=== PATIENT | female | born 1950 | race African-American/Black ===

== ENCOUNTER 2017-01-05 14:49 | Inpatient (IN) | payer MEDICARE, MEDICAID ==
[~2017-01-05] VITALS: Ht 152.4 cm; Wt 48.9 kg
[~2017-01-05 14:49] MED LIST: ALLO300 PO; BENZ0.5T6 PO; CLON.2 PO; ETOMIDATE 2 MG/ML 10 ML VIAL IVP ONE; FLUO-191 PO; RISP1 PO; SUCCINYLCHOLINE CHLORIDE 20 MG/ML 10 ML VIAL IVP ONE; TRIA1CAP13 PO
[2017-01-05] MEDS ORDERED: IPRATROPIUM BROMIDE 0.5 MG/2.5 ML NEB SOLUTION NEB ONE (15:00)
[2017-01-05] MEDS ORDERED: ALBUTEROL SULFATE 2.5 MG/0.5 ML NEB SOLUTION NEB ONE (15:00)
[2017-01-05 15:51] LABS: ANION GAP 16 mmol/L (8-16); CALCIUM, TOTAL 9.7 mg/dL (8.8-10.5); CARBON DIOXIDE 24 mmol/L (22-29); CHLORIDE 90 mmol/L (98-107); CREATININE 0.74 mg/dL (0.60-1.30); GLOMERULAR FILTR. RATE CALC > 60 mL/min (>60); POTASSIUM 3.3 mmol/L (3.5-5.1); SODIUM SERUM 130 mmol/L (136-145); UREA NITROGEN, BLOOD 10 mg/dL (7-18)
[2017-01-05 16:13] LABS: ALANINE AMINOTRANSFERASE 57 U/L (12-78); ALBUMIN 2.1 g/dL (3.4-5.0); ASPARTATE AMINOTRANSFERASE 72 U/L (15-37); BILIRUBIN,TOTAL 1.1 mg/dL (0.1-1.0); TOTAL PROTEIN, SERUM 8.3 g/dL (6.4-8.2)
[2017-01-05] MEDS ORDERED: CefTRIAXone 1 GM/DEXTROSE 50 ML IV ONE (16:15)
[2017-01-05] MEDS ORDERED: SODIUM CHLORIDE 0.9% 1,000 ML IV ONE (16:15)
[2017-01-05] MEDS ORDERED: AZITHROMYCIN 500 MG/NS 250 ML IV ONE (16:15)
[2017-01-05 16:26] LABS: B-TYPE NATRIURETIC PEPTIDE 128 pg/mL (0-100)
[2017-01-05 17:23] LABS: HEMATOCRIT 34.3 % (36-46); HEMOGLOBIN 11.5 g/dL (12.0-16.0); MEAN CORPUSCULAR HEMOGLOBIN 32.5 pg (26.0-34.0); MEAN CORPUSCULAR HGB CONC 33.5 G/dL (31.0-37.0); MEAN CORPUSCULAR VOLUME 97 fL (80-100); PLATELET COUNT (AUTO) 311 K/uL (150-450); RED BLOOD CELL COUNT(AUTO) 3.53 MIL/uL (4.00-5.20); WHITE BLOOD COUNT (AUTO) 13.3 K/uL (4.5-11.0)
[2017-01-05 17:25] LABS: BAND NEUTROPHILS % (MANUAL) 27 % (1-5); LYMPHOCYTES % (MANUAL) 6 % (22-44); TOTAL CELLS COUNTED 100; WBC MORPHOLOGY TOXIC GRANULATION
[2017-01-05 17:27] LABS: ORIG DRAW (USER) PTCARESTAF
[2017-01-05] MEDS ORDERED: LORazepam 2 MG/ML VIAL IVP ONE (19:00)
[2017-01-05] MEDS ORDERED: ACETAMINOPHEN 325 MG TABLET PO PRN ×2 (19:45→21:45)
[2017-01-05] MEDS ORDERED: 0.9% SODIUM CHLORIDE 10 ML SYRINGE IVP PRN (19:45)
[2017-01-05] MEDS ORDERED: SUCCINYLCHOLINE CHLORIDE 20 MG/ML 10 ML VIAL ONE (20:10)
[2017-01-05] MEDS ORDERED: RAPID SEQUENCE KIT [RSI] 1 EACH KIT ONE ×2 (20:10)
[2017-01-05] MEDS ORDERED: PROPOFOL 1000 MG/ISO-OSM 100 ML IV PRN (20:21)
[2017-01-05 21:35] LABS: ABG A-A DIFF O2 157.7 mmHg (10-20.0); ABG BASE EXCESS 2.2 mmol/L (-2.0-3.0); ABG HCO3 25.6 mmol/L (22.0-26.0); ABG OXYHEMOGLOBIN 96.1 % (94.0-100.0); ABG PCO2 55 mmHg (35-45); ABG PH 7.327 (7.35-7.450); TEMPERATURE, FAHRENHEIT, BG 98.6 FAHREN (96.0-98.6)
[2017-01-05 21:36] LABS: ALLEN TEST, BLOOD GAS POSITIVE
[2017-01-05] MEDS ORDERED: MAGNESIUM HYDROXIDE SUSPENSION 30 ML UDCUP PO PRN (21:45)
[2017-01-05] MEDS ORDERED: BISACODYL 10 MG RECTAL RECTAL SUPPOSITORY PR PRN (21:45)
[2017-01-05] MEDS: SODIUM CHLORIDE 0.9% 1,000 ML IV SCH (21:58)
[2017-01-05] MEDS ORDERED: MORPHINE SULFATE 2 MG/ML SYRINGE IVP PRN (22:00)
[2017-01-05] MEDS: LEVOFLOXACIN 750 MG/D5% WATER 150 ML IV SCH (22:27)
[2017-01-05] MEDS: PROPOFOL 1000 MG/ISO-OSM 100 ML IV PRN (23:30)
[2017-01-06] MEDS: ALBUTEROL SULFATE 2.5 MG/0.5 ML NEB SOLUTION NEB SCH ×4 (02:00→18:42)
[2017-01-06] MEDS: IPRATROPIUM BROMIDE 0.5 MG/2.5 ML NEB SOLUTION NEB SCH ×4 (02:00→18:42)
[2017-01-06 06:16] LABS: ANION GAP 8 mmol/L (8-16); CALCIUM, TOTAL 8.5 mg/dL (8.8-10.5); CARBON DIOXIDE 32 mmol/L (22-29); CHLORIDE 99 mmol/L (98-107); CREATININE 0.71 mg/dL (0.60-1.30); GLOMERULAR FILTR. RATE CALC > 60 mL/min (>60); POTASSIUM 3.5 mmol/L (3.5-5.1); SODIUM SERUM 139 mmol/L (136-145); UREA NITROGEN, BLOOD 8 mg/dL (7-18)
[2017-01-06 06:37] LABS: BASOPHILS # (AUTO) 0.01 K/uL (0.00-0.20); BASOPHILS % (AUTO) 0.1 % (0.0-2.0); EOSINOPHILS # (AUTO) 0.02 K/uL (0.00-0.70); HEMATOCRIT 30.5 % (36-46); HEMOGLOBIN 10.4 g/dL (12.0-16.0); LYMPHOCYTES # (AUTO) 1.8 K/uL (1.0-4.8); LYMPHOCYTES % (AUTO) 12.1 % (22.0-44.0); MEAN CORPUSCULAR HEMOGLOBIN 33.5 pg (26.0-34.0); MEAN CORPUSCULAR HGB CONC 34.1 G/dL (31.0-37.0); MEAN CORPUSCULAR VOLUME 98 fL (80-100); MONOCYTES % (AUTO) 13.4 % (2.0-9.0); NEUTROPHILS # (AUTO) 10.9 K/uL (1.8-7.7); NEUTROPHILS % (AUTO) 74.3 % (40.0-70.0); PLATELET COUNT (AUTO) 282 K/uL (150-450); RED CELL DISTRIBUTION WIDTH 13.8 % (11.5-14.5); WHITE BLOOD COUNT (AUTO) 14.7 K/uL (4.5-11.0)
[2017-01-06] MEDS: SODIUM CHLORIDE 0.9% 1,000 ML IV SCH (07:33)
[2017-01-06] MEDS ORDERED: PANTOPRAZOLE SODIUM 40 MG/VIAL IVP SCH (09:00)
[2017-01-06] MEDS ORDERED: ENOXAPARIN SODIUM 40 MG/0.4 ML PF SYRINGE SQ SCH (09:00)
[2017-01-06] MEDS ORDERED: RISP2 PO (11:52)
[2017-01-06] MEDS ORDERED: BENZ1TAB10 PO (11:52)
[2017-01-06] MEDS ORDERED: PANTOPRAZOLE SODIUM 80 MG in SODIUM CHLORIDE 0.9% 50 ML IV ONE (12:00)
[2017-01-06 12:14] LABS: CREATINE KINASE, TOTAL 32 U/L (26-192)
[2017-01-06 12:15] LABS: ABG A-A DIFF O2 91.5 mmHg (10-20.0); ABG BASE EXCESS 4.4 mmol/L (-2.0-3.0); ABG HCO3 27.9 mmol/L (22.0-26.0); ABG OXYHEMOGLOBIN 92.8 % (94.0-100.0); ABG PCO2 44 mmHg (35-45); ABG PH 7.432 (7.35-7.450); TEMPERATURE, FAHRENHEIT, BG 98.6 FAHREN (96.0-98.6)
[2017-01-06 12:16] LABS: ALLEN TEST, BLOOD GAS Positive
[2017-01-06 21:07] LABS: CREATINE KINASE, TOTAL 32 U/L (26-192)
[2017-01-06] MEDS: LEVOFLOXACIN 750 MG/D5% WATER 150 ML IV SCH (22:11)
[2017-01-07 02:00] VITALS: BP 88/64
[2017-01-07] MEDS: IPRATROPIUM BROMIDE 0.5 MG/2.5 ML NEB SOLUTION NEB SCH ×4 (02:57→19:46)
[2017-01-07] MEDS: ALBUTEROL SULFATE 2.5 MG/0.5 ML NEB SOLUTION NEB SCH ×4 (02:57→19:46)
[2017-01-07 04:00] VITALS: BP 107/78
[2017-01-07] MEDS ORDERED: 0.9% SODIUM CHLORIDE 10 ML SYRINGE IVP PRN (05:30)
[2017-01-07 05:39] LABS: BASOPHILS % (AUTO) 0.1 % (0.0-2.0); EOSINOPHILS % (AUTO) 0.1 % (1.0-6.0); HEMATOCRIT 31.9 % (36-46); HEMOGLOBIN 10.6 g/dL (12.0-16.0); LYMPHOCYTES # (AUTO) 1.5 K/uL (1.0-4.8); LYMPHOCYTES % (AUTO) 8.4 % (22.0-44.0); MEAN CORPUSCULAR HEMOGLOBIN 32.7 pg (26.0-34.0); MEAN CORPUSCULAR HGB CONC 33.1 G/dL (31.0-37.0); MEAN CORPUSCULAR VOLUME 99 fL (80-100); MONOCYTES # (AUTO) 1.4 K/uL (0.1-1.0); MONOCYTES % (AUTO) 7.9 % (2.0-9.0); NEUTROPHILS # (AUTO) 14.6 K/uL (1.8-7.7); NEUTROPHILS % (AUTO) 83.5 % (40.0-70.0); PLATELET COUNT (AUTO) 341 K/uL (150-450); RED BLOOD CELL COUNT(AUTO) 3.23 MIL/uL (4.00-5.20); RED CELL DISTRIBUTION WIDTH 14.2 % (11.5-14.5); WHITE BLOOD COUNT (AUTO) 17.5 K/uL (4.5-11.0)
[2017-01-07 06:25] LABS: ALANINE AMINOTRANSFERASE 34 U/L (12-78); ALBUMIN 1.6 g/dL (3.4-5.0); ANION GAP 9 mmol/L (8-16); ASPARTATE AMINOTRANSFERASE 33 U/L (15-37); BILIRUBIN,TOTAL 0.7 mg/dL (0.1-1.0); CALCIUM, TOTAL 8.9 mg/dL (8.8-10.5); CARBON DIOXIDE 29 mmol/L (22-29); CHLORIDE 103 mmol/L (98-107); CREATINE KINASE, TOTAL 23 U/L (26-192); CREATININE 0.65 mg/dL (0.60-1.30); GLOMERULAR FILTR. RATE CALC > 60 mL/min (>60); PHOSPHORUS 2.5 mg/dL (2.5-4.9); POTASSIUM 3.3 mmol/L (3.5-5.1); SODIUM SERUM 141 mmol/L (136-145); THYROID STIMULATING HORMONE 0.66 uIU/mL (0.36-3.74); TOTAL PROTEIN, SERUM 6.8 g/dL (6.4-8.2); UREA NITROGEN, BLOOD 9 mg/dL (7-18)
[2017-01-07 08:00] VITALS: BP 105/71
[2017-01-07] MEDS: PROPOFOL 1000 MG/ISO-OSM 100 ML IV PRN ×3 (08:16→23:09)
[2017-01-07 08:38] LABS: APPEARANCE,URINE CLOUDY (CLEAR); GLUCOSE, URINE (UA) NEGATIVE (NEGATIVE); KETONES,URINE 40 mg/dL (NEGATIVE); LEUKOCYTE ESTERASE ,URINE SMALL (NEGATIVE); OCCULT BLOOD,URINE NEGATIVE (NEGATIVE); PROTEIN,URINE POS 1+ (NEGATIVE)
[2017-01-07 08:39] LABS: ADD UA MICROSCOPIC YES
[2017-01-07 08:41] LABS: RBC,URINE None Seen /HPF (0-2)
[2017-01-07 08:42] LABS: SQUAMOUS EPITHELIAL CELL,UR Moderate /LPF (None Seen)
[2017-01-07 08:43] LABS: HYALINE CASTS, URINE 0-2 /LPF (None Seen)
[2017-01-07 09:19] LABS: B-TYPE NATRIURETIC PEPTIDE 45 pg/mL (0-100)
[2017-01-07 09:21] LABS: ABG A-A DIFF O2 112.6 mmHg (10-20.0); ABG BASE EXCESS 1.7 mmol/L (-2.0-3.0); ABG HCO3 26.2 mmol/L (22.0-26.0); ABG OXYHEMOGLOBIN 91.2 % (94.0-100.0); ABG PCO2 34 mmHg (35-45); ALLEN TEST, BLOOD GAS Positive; TEMPERATURE, FAHRENHEIT, BG 98.6 FAHREN (96.0-98.6)
[2017-01-07 12:00] VITALS: BP 113/73
[2017-01-07 16:00] VITALS: BP 93/63
[2017-01-07] MEDS ORDERED: POTASSIUM CHLORIDE 10% 40 MEQ/30 ML LIQUID UDCUP GT ONE (16:30)
[2017-01-07] MEDS ORDERED: MAGNESIUM HYDROXIDE SUSPENSION 30 ML UDCUP GT PRN (16:33)
[2017-01-07] MEDS: ENOXAPARIN SODIUM 30 MG/0.3 ML PF SYRINGE SQ SCH (19:52)
[2017-01-07] MEDS: PANTOPRAZOLE SODIUM 40 MG/VIAL IVP SCH (19:52)
[2017-01-07 21:42] VITALS: BP 92/70
[2017-01-07] MEDS ORDERED: SODIUM CHLORIDE 0.9% 100 ML ONE (23:06)
[2017-01-07] MEDS: LEVOFLOXACIN 750 MG/D5% WATER 150 ML IV SCH (23:07)
[2017-01-08] VITALS: BP 128/65
[2017-01-08] MEDS ORDERED: SODIUM CHLORIDE 0.9% 500 ML IV ONE (00:07)
[2017-01-08] MEDS: ALBUTEROL SULFATE 2.5 MG/0.5 ML NEB SOLUTION NEB SCH ×4 (01:23→20:07)
[2017-01-08] MEDS: IPRATROPIUM BROMIDE 0.5 MG/2.5 ML NEB SOLUTION NEB SCH ×4 (01:23→20:07)
[2017-01-08 04:00] VITALS: BP 122/77
[2017-01-08 05:53] LABS: BASOPHILS % (AUTO) 0.3 % (0.0-2.0); EOSINOPHILS % (AUTO) 0.1 % (1.0-6.0); HEMOGLOBIN 10.2 g/dL (12.0-16.0); LYMPHOCYTES # (AUTO) 1.5 K/uL (1.0-4.8); LYMPHOCYTES % (AUTO) 8.1 % (22.0-44.0); MEAN CORPUSCULAR HEMOGLOBIN 32.6 pg (26.0-34.0); MEAN CORPUSCULAR HGB CONC 32.9 G/dL (31.0-37.0); MEAN CORPUSCULAR VOLUME 99 fL (80-100); MONOCYTES # (AUTO) 1.6 K/uL (0.1-1.0); MONOCYTES % (AUTO) 8.8 % (2.0-9.0); NEUTROPHILS # (AUTO) 15.3 K/uL (1.8-7.7); NEUTROPHILS % (AUTO) 82.7 % (40.0-70.0); PLATELET COUNT (AUTO) 347 K/uL (150-450); RED BLOOD CELL COUNT(AUTO) 3.13 MIL/uL (4.00-5.20); RED CELL DISTRIBUTION WIDTH 14.5 % (11.5-14.5); WHITE BLOOD COUNT (AUTO) 18.5 K/uL (4.5-11.0)
[2017-01-08 06:45] LABS: ANION GAP 6 mmol/L (8-16); CALCIUM, TOTAL 8.9 mg/dL (8.8-10.5); CARBON DIOXIDE 31 mmol/L (22-29); CHLORIDE 105 mmol/L (98-107); CREATININE 0.61 mg/dL (0.60-1.30); GLOMERULAR FILTR. RATE CALC > 60 mL/min (>60); POTASSIUM 3.9 mmol/L (3.5-5.1); SODIUM SERUM 142 mmol/L (136-145); UREA NITROGEN, BLOOD 10 mg/dL (7-18)
[2017-01-08] MEDS: PROPOFOL 1000 MG/ISO-OSM 100 ML IV PRN ×2 (06:57→17:16)
[2017-01-08 07:39] LABS: ABG A-A DIFF O2 71.9 mmHg (10-20.0); ABG BASE EXCESS 4.4 mmol/L (-2.0-3.0); ABG OXYHEMOGLOBIN 96.2 % (94.0-100.0); ABG PCO2 41 mmHg (35-45); ABG PH 7.457 (7.35-7.450); ALLEN TEST, BLOOD GAS Positive; TEMPERATURE, FAHRENHEIT, BG 97.9 FAHREN (96.0-98.6)
[2017-01-08 08:00] VITALS: BP 127/84
[2017-01-08] MEDS: PANTOPRAZOLE SODIUM 40 MG/VIAL IVP SCH (08:08)
[2017-01-08] MEDS: ENOXAPARIN SODIUM 30 MG/0.3 ML PF SYRINGE SQ SCH (08:08)
[2017-01-08] MEDS ORDERED: PANTOPRAZOLE SODIUM 40 MG/VIAL IVP SCH (09:00)
[2017-01-08 12:00] VITALS: BP 111/77
[2017-01-08 16:00] VITALS: BP 99/67
[2017-01-08 20:00] VITALS: BP 107/72
[2017-01-08] MEDS: LEVOFLOXACIN 750 MG/D5% WATER 150 ML IV SCH (23:09)
[2017-01-09] VITALS: BP 102/67
[2017-01-09] MEDS: PROPOFOL 1000 MG/ISO-OSM 100 ML IV PRN ×3 (01:15→17:40)
[2017-01-09 01:54] LABS: INFLUENZA TYPE B NEGATIVE FOR TYPE B (NEGATIVE)
[2017-01-09] MEDS: ALBUTEROL SULFATE 2.5 MG/0.5 ML NEB SOLUTION NEB SCH ×4 (02:01→19:44)
[2017-01-09] MEDS: IPRATROPIUM BROMIDE 0.5 MG/2.5 ML NEB SOLUTION NEB SCH ×4 (02:01→19:44)
[2017-01-09 04:00] VITALS: BP 105/71
[2017-01-09 05:20] LABS: BASOPHILS # (AUTO) 0.01 K/uL (0.00-0.20); BASOPHILS % (AUTO) 0.1 % (0.0-2.0); EOSINOPHILS # (AUTO) 0.06 K/uL (0.00-0.70); EOSINOPHILS % (AUTO) 0.38 % (1.0-6.0); HEMATOCRIT 29.6 % (36-46); HEMOGLOBIN 10.2 g/dL (12.0-16.0); LYMPHOCYTES # (AUTO) 1.3 K/uL (1.0-4.8); MEAN CORPUSCULAR HGB CONC 34.5 G/dL (31.0-37.0); MEAN CORPUSCULAR VOLUME 99 fL (80-100); MONOCYTES # (AUTO) 1.3 K/uL (0.1-1.0); MONOCYTES % (AUTO) 7.9 % (2.0-9.0); NEUTROPHILS # (AUTO) 13.4 K/uL (1.8-7.7); NEUTROPHILS % (AUTO) 83.7 % (40.0-70.0); PLATELET COUNT (AUTO) 347 K/uL (150-450); RED CELL DISTRIBUTION WIDTH 14.7 % (11.5-14.5)
[2017-01-09 05:26] LABS: ANION GAP 2 mmol/L (8-16); CALCIUM, TOTAL 8.7 mg/dL (8.8-10.5); CARBON DIOXIDE 30 mmol/L (22-29); CHLORIDE 104 mmol/L (98-107); CREATININE 0.63 mg/dL (0.60-1.30); GLOMERULAR FILTR. RATE CALC > 60 mL/min (>60); POTASSIUM 3.5 mmol/L (3.5-5.1); SODIUM SERUM 136 mmol/L (136-145); UREA NITROGEN, BLOOD 11 mg/dL (7-18)
[2017-01-09] MEDS ORDERED: SODIUM CHLORIDE 0.9% 250 ML IV ONE ×2 (06:35→08:03)
[2017-01-09 08:00] VITALS: BP 106/73
[2017-01-09] MEDS: PANTOPRAZOLE SODIUM 40 MG/VIAL IVP SCH (08:03)
[2017-01-09] MEDS: ENOXAPARIN SODIUM 30 MG/0.3 ML PF SYRINGE SQ SCH (08:04)
[2017-01-09 08:13] LABS: ABG A-A DIFF O2 88.4 mmHg (10-20.0); ABG HCO3 25.4 mmol/L (22.0-26.0); ABG PCO2 37 mmHg (35-45); ABG PH 7.445 (7.35-7.450); TEMPERATURE, FAHRENHEIT, BG 98.6 FAHREN (96.0-98.6)
[2017-01-09 08:15] LABS: ALLEN TEST, BLOOD GAS Positive
[2017-01-09 12:00] VITALS: BP 100/72
[2017-01-09 16:00] VITALS: BP 101/67
[2017-01-09 20:00] VITALS: BP 140/67
[2017-01-09] MEDS: ACETAMINOPHEN 325 MG TABLET GT PRN (20:49)
[2017-01-09] MEDS ORDERED: SODIUM CHLORIDE 0.9% 1,000 ML IV SCH (21:15)
[2017-01-09] MEDS: LEVOFLOXACIN 750 MG/D5% WATER 150 ML IV SCH (23:07)
[2017-01-10] VITALS: BP 97/62
[2017-01-10] MEDS: IPRATROPIUM BROMIDE 0.5 MG/2.5 ML NEB SOLUTION NEB SCH ×4 (02:02→19:49)
[2017-01-10] MEDS: ALBUTEROL SULFATE 2.5 MG/0.5 ML NEB SOLUTION NEB SCH ×4 (02:02→19:49)
[2017-01-10] MEDS: ACETAMINOPHEN 325 MG TABLET GT PRN (02:45)
[2017-01-10] MEDS: PROPOFOL 1000 MG/ISO-OSM 100 ML IV PRN ×2 (02:46→08:32)
[2017-01-10 04:00] VITALS: BP 97/64
[2017-01-10 06:29] LABS: HEMATOCRIT 27.7 % (36-46); HEMOGLOBIN 9.1 g/dL (12.0-16.0); MEAN CORPUSCULAR HEMOGLOBIN 32.7 pg (26.0-34.0); MEAN CORPUSCULAR HGB CONC 32.9 G/dL (31.0-37.0); MEAN CORPUSCULAR VOLUME 99 fL (80-100); PLATELET COUNT (AUTO) 332 K/uL (150-450); RED BLOOD CELL COUNT(AUTO) 2.79 MIL/uL (4.00-5.20); WHITE BLOOD COUNT (AUTO) 15.9 K/uL (4.5-11.0)
[2017-01-10 07:14] LABS: ANION GAP 5 mmol/L (8-16); CALCIUM, TOTAL 8.3 mg/dL (8.8-10.5); CARBON DIOXIDE 29 mmol/L (22-29); CHLORIDE 106 mmol/L (98-107); GLOMERULAR FILTR. RATE CALC > 60 mL/min (>60); POTASSIUM 4.1 mmol/L (3.5-5.1); SODIUM SERUM 140 mmol/L (136-145); UREA NITROGEN, BLOOD 9 mg/dL (7-18)
[2017-01-10 08:00] VITALS: BP 119/83
[2017-01-10] MEDS: PANTOPRAZOLE SODIUM 40 MG/VIAL IVP SCH (08:32)
[2017-01-10] MEDS: ENOXAPARIN SODIUM 30 MG/0.3 ML PF SYRINGE SQ SCH (08:33)
[2017-01-10 09:48] LABS: ABG A-A DIFF O2 82.8 mmHg (10-20.0); ABG BASE EXCESS 3.4 mmol/L (-2.0-3.0); ABG HCO3 27.3 mmol/L (22.0-26.0); ABG OXYHEMOGLOBIN 94.2 % (94.0-100.0); ABG PCO2 42 mmHg (35-45); ABG PH 7.436 (7.35-7.450); TEMPERATURE, FAHRENHEIT, BG 99.4 FAHREN (96.0-98.6)
[2017-01-10 09:49] LABS: ALLEN TEST, BLOOD GAS Positive
[2017-01-10 12:00] VITALS: BP 118/80
[2017-01-10 12:14] LABS: BAND NEUTROPHILS % (MANUAL) 33 % (1-5); LYMPHOCYTES % (MANUAL) 8 % (22-44); METAMYELOCYTES % 3 % (0-0); TOTAL CELLS COUNTED 100
[2017-01-10 16:00] VITALS: BP 107/76
[2017-01-10 20:00] VITALS: BP 107/66
[2017-01-10] MEDS: LEVOFLOXACIN 750 MG/D5% WATER 150 ML IV SCH (23:33)
[2017-01-11] VITALS (7 sets, daily range): BP systolic 95–147; BP diastolic 65–122
[2017-01-11] MEDS: IPRATROPIUM BROMIDE 0.5 MG/2.5 ML NEB SOLUTION NEB SCH ×4 (01:42→20:09)
[2017-01-11] MEDS: ALBUTEROL SULFATE 2.5 MG/0.5 ML NEB SOLUTION NEB SCH ×4 (01:42→20:09)
[2017-01-11] MEDS ORDERED: SODIUM CHLORIDE 0.9% 0 ML IV ONE (02:12)
[2017-01-11] MEDS ORDERED: SODIUM CHLORIDE 0.9% 250 ML IV ONE (02:13)
[2017-01-11] MEDS: PROPOFOL 1000 MG/ISO-OSM 100 ML IV PRN ×2 (02:19→18:14)
[2017-01-11 08:02] LABS: ABG A-A DIFF O2 83.2 mmHg (10-20.0); ABG BASE EXCESS 4.4 mmol/L (-2.0-3.0); ABG OXYHEMOGLOBIN 94.2 % (94.0-100.0); ABG PCO2 43 mmHg (35-45); ABG PH 7.444 (7.35-7.450); ALLEN TEST, BLOOD GAS Positive; TEMPERATURE, FAHRENHEIT, BG 98.6 FAHREN (96.0-98.6)
[2017-01-11] MEDS: ENOXAPARIN SODIUM 30 MG/0.3 ML PF SYRINGE SQ SCH (09:00)
[2017-01-11] MEDS: PANTOPRAZOLE SODIUM 40 MG/VIAL IVP SCH (09:00)
[2017-01-11] MEDS ORDERED: MORPHINE SULFATE 2 MG/ML SYRINGE IVP PRN (10:30)
[2017-01-11] MEDS: LORazepam 2 MG/ML VIAL IVP PRN (13:36)
[2017-01-11] MEDS: LEVOFLOXACIN 750 MG/D5% WATER 150 ML IV SCH (23:13)
[2017-01-12] VITALS: BP 113/75
[2017-01-12] MEDS: IPRATROPIUM BROMIDE 0.5 MG/2.5 ML NEB SOLUTION NEB SCH ×4 (02:12→19:49)
[2017-01-12] MEDS: ALBUTEROL SULFATE 2.5 MG/0.5 ML NEB SOLUTION NEB SCH ×4 (02:12→19:49)
[2017-01-12 04:00] VITALS: BP 106/69
[2017-01-12 08:00] VITALS: BP 101/62
[2017-01-12] MEDS: MULTIVITAMINS WITH MINERALS, THERAPEUTIC 15 ML UDCUP GT SCH (09:00)
[2017-01-12] MEDS: PANTOPRAZOLE SODIUM 40 MG/VIAL IVP SCH (09:27)
[2017-01-12] MEDS: ENOXAPARIN SODIUM 30 MG/0.3 ML PF SYRINGE SQ SCH (09:27)
[2017-01-12 10:13] LABS: BASOPHILS % (AUTO) 0.6 % (0.0-2.0); EOSINOPHILS % (AUTO) 0.6 % (1.0-6.0); HEMATOCRIT 28.8 % (36-46); HEMOGLOBIN 9.4 g/dL (12.0-16.0); LYMPHOCYTES # (AUTO) 1.8 K/uL (1.0-4.8); MEAN CORPUSCULAR HEMOGLOBIN 32.5 pg (26.0-34.0); MEAN CORPUSCULAR HGB CONC 32.7 G/dL (31.0-37.0); MEAN CORPUSCULAR VOLUME 99 fL (80-100); MONOCYTES # (AUTO) 1.2 K/uL (0.1-1.0); NEUTROPHILS # (AUTO) 7.5 K/uL (1.8-7.7); NEUTROPHILS % (AUTO) 70.8 % (40.0-70.0); PLATELET COUNT (AUTO) 304 K/uL (150-450); RED BLOOD CELL COUNT(AUTO) 2.91 MIL/uL (4.00-5.20); RED CELL DISTRIBUTION WIDTH 14.3 % (11.5-14.5); WHITE BLOOD COUNT (AUTO) 10.7 K/uL (4.5-11.0)
[2017-01-12] MEDS: PROPOFOL 1000 MG/ISO-OSM 100 ML IV PRN (10:38)
[2017-01-12 10:40] LABS: ANION GAP 4 mmol/L (8-16); CALCIUM, TOTAL 8.6 mg/dL (8.8-10.5); CARBON DIOXIDE 31 mmol/L (22-29); CHLORIDE 105 mmol/L (98-107); GLOMERULAR FILTR. RATE CALC > 60 mL/min (>60); POTASSIUM 4.3 mmol/L (3.5-5.1); SODIUM SERUM 140 mmol/L (136-145); UREA NITROGEN, BLOOD 11 mg/dL (7-18)
[2017-01-12 11:31] LABS: ABG BASE EXCESS 4.3 mmol/L (-2.0-3.0); ABG OXYHEMOGLOBIN 93.9 % (94.0-100.0); ABG PCO2 41 mmHg (35-45); ABG PH 7.458 (7.35-7.450); TEMPERATURE, FAHRENHEIT, BG 98.6 FAHREN (96.0-98.6)
[2017-01-12 11:32] LABS: ALLEN TEST, BLOOD GAS Positive
[2017-01-12 12:00] VITALS: BP 104/66
[2017-01-12 16:00] VITALS: BP 123/72
[2017-01-12 20:00] VITALS: BP 117/70
[2017-01-12] MEDS ORDERED: SODIUM CHLORIDE 0.9% 250 ML IV ONE (20:02)
[2017-01-12] MEDS: LEVOFLOXACIN 750 MG/D5% WATER 150 ML IV SCH (23:02)
[2017-01-13] VITALS: BP 122/74
[2017-01-13] MEDS: PROPOFOL 1000 MG/ISO-OSM 100 ML IV PRN ×2 (01:11→09:40)
[2017-01-13] MEDS: ALBUTEROL SULFATE 2.5 MG/0.5 ML NEB SOLUTION NEB SCH ×4 (02:07→19:43)
[2017-01-13] MEDS: IPRATROPIUM BROMIDE 0.5 MG/2.5 ML NEB SOLUTION NEB SCH ×4 (02:07→19:43)
[2017-01-13 04:00] VITALS: BP 121/67
[2017-01-13 05:12] LABS: BASOPHILS % (AUTO) 0.5 % (0.0-2.0); EOSINOPHILS % (AUTO) 0.5 % (1.0-6.0); HEMOGLOBIN 9.3 g/dL (12.0-16.0); LYMPHOCYTES # (AUTO) 2.2 K/uL (1.0-4.8); LYMPHOCYTES % (AUTO) 20.9 % (22.0-44.0); MEAN CORPUSCULAR HEMOGLOBIN 32.8 pg (26.0-34.0); MEAN CORPUSCULAR HGB CONC 33.3 G/dL (31.0-37.0); MEAN CORPUSCULAR VOLUME 99 fL (80-100); MONOCYTES # (AUTO) 1.2 K/uL (0.1-1.0); NEUTROPHILS # (AUTO) 7.2 K/uL (1.8-7.7); NEUTROPHILS % (AUTO) 67.1 % (40.0-70.0); PLATELET COUNT (AUTO) 289 K/uL (150-450); RED BLOOD CELL COUNT(AUTO) 2.84 MIL/uL (4.00-5.20); RED CELL DISTRIBUTION WIDTH 14.4 % (11.5-14.5); WHITE BLOOD COUNT (AUTO) 10.7 K/uL (4.5-11.0)
[2017-01-13 05:52] LABS: CALCIUM, TOTAL 8.6 mg/dL (8.8-10.5); CREATININE 0.64 mg/dL (0.60-1.30); GLOMERULAR FILTR. RATE CALC > 60 mL/min (>60); UREA NITROGEN, BLOOD 10 mg/dL (7-18)
[2017-01-13 06:50] LABS: CHLORIDE 105 mmol/L (98-107); SODIUM SERUM 141 mmol/L (136-145)
[2017-01-13 06:51] LABS: ANION GAP 6 mmol/L (8-16); CARBON DIOXIDE 30 mmol/L (22-29)
[2017-01-13 08:00] VITALS: BP 127/73
[2017-01-13] MEDS: MULTIVITAMINS WITH MINERALS, THERAPEUTIC 15 ML UDCUP GT SCH (09:00)
[2017-01-13] MEDS: PANTOPRAZOLE SODIUM 40 MG/VIAL IVP SCH (09:39)
[2017-01-13] MEDS: ENOXAPARIN SODIUM 30 MG/0.3 ML PF SYRINGE SQ SCH (09:39)
[2017-01-13 12:00] VITALS: BP 130/75
[2017-01-13 14:05] LABS: ABG A-A DIFF O2 125.7 mmHg (10-20.0); ABG BASE EXCESS 3.2 mmol/L (-2.0-3.0); ABG HCO3 27.1 mmol/L (22.0-26.0); ABG PCO2 40 mmHg (35-45); ABG PH 7.447 (7.35-7.450); ALLEN TEST, BLOOD GAS Positive; TEMPERATURE, FAHRENHEIT, BG 98.6 FAHREN (96.0-98.6)
[2017-01-13] MEDS: LORazepam 2 MG/ML VIAL IVP PRN (15:21)
[2017-01-13 16:00] VITALS: BP 152/75
[2017-01-13 17:44] LABS: ABG A-A DIFF O2 125.9 mmHg (10-20.0); ABG BASE EXCESS 5.5 mmol/L (-2.0-3.0); ABG HCO3 28.8 mmol/L (22.0-26.0); ABG OXYHEMOGLOBIN 92.4 % (94.0-100.0); ABG PCO2 44 mmHg (35-45); ABG PH 7.442 (7.35-7.450); ALLEN TEST, BLOOD GAS Positive; TEMPERATURE, FAHRENHEIT, BG 98.6 FAHREN (96.0-98.6)
[2017-01-13 20:00] VITALS: BP 177/97
[2017-01-13] MEDS: LEVOFLOXACIN 750 MG/D5% WATER 150 ML IV SCH (23:06)
[2017-01-14] VITALS: BP 129/65
[2017-01-14] MEDS: ALBUTEROL SULFATE 2.5 MG/0.5 ML NEB SOLUTION NEB SCH ×4 (02:08→19:42)
[2017-01-14] MEDS: IPRATROPIUM BROMIDE 0.5 MG/2.5 ML NEB SOLUTION NEB SCH ×4 (02:09→19:42)
[2017-01-14] MEDS: PROPOFOL 1000 MG/ISO-OSM 100 ML IV PRN (03:22)
[2017-01-14 04:00] VITALS: BP 110/65
[2017-01-14 08:00] VITALS: BP 135/81
[2017-01-14 08:12] LABS: ABG A-A DIFF O2 85.6 mmHg (10-20.0); ABG BASE EXCESS 2.6 mmol/L (-2.0-3.0); ABG HCO3 26.6 mmol/L (22.0-26.0); ABG OXYHEMOGLOBIN 94.4 % (94.0-100.0); ABG PCO2 41 mmHg (35-45); ABG PH 7.438 (7.35-7.450); TEMPERATURE, FAHRENHEIT, BG 98.6 FAHREN (96.0-98.6)
[2017-01-14 08:13] LABS: ALLEN TEST, BLOOD GAS Positive
[2017-01-14] MEDS: MULTIVITAMINS WITH MINERALS, THERAPEUTIC 15 ML UDCUP GT SCH (09:00)
[2017-01-14] MEDS: PANTOPRAZOLE SODIUM 40 MG/VIAL IVP SCH (09:00)
[2017-01-14] MEDS: ENOXAPARIN SODIUM 30 MG/0.3 ML PF SYRINGE SQ SCH (09:00)
[2017-01-14 10:46] LABS: BASOPHILS % (AUTO) 0.1 % (0.0-2.0); EOSINOPHILS % (AUTO) 0.6 % (1.0-6.0); HEMATOCRIT 28.9 % (36-46); HEMOGLOBIN 9.7 g/dL (12.0-16.0); LYMPHOCYTES % (AUTO) 19.3 % (22.0-44.0); MEAN CORPUSCULAR HEMOGLOBIN 32.8 pg (26.0-34.0); MEAN CORPUSCULAR HGB CONC 33.4 G/dL (31.0-37.0); MEAN CORPUSCULAR VOLUME 98 fL (80-100); MONOCYTES # (AUTO) 0.9 K/uL (0.1-1.0); MONOCYTES % (AUTO) 9.1 % (2.0-9.0); NEUTROPHILS # (AUTO) 7.3 K/uL (1.8-7.7); NEUTROPHILS % (AUTO) 70.9 % (40.0-70.0); PLATELET COUNT (AUTO) 247 K/uL (150-450); RED BLOOD CELL COUNT(AUTO) 2.94 MIL/uL (4.00-5.20); RED CELL DISTRIBUTION WIDTH 14.3 % (11.5-14.5); WHITE BLOOD COUNT (AUTO) 10.3 K/uL (4.5-11.0)
[2017-01-14 10:56] LABS: ANION GAP 2 mmol/L (8-16); CALCIUM, TOTAL 8.9 mg/dL (8.8-10.5); CARBON DIOXIDE 34 mmol/L (22-29); CHLORIDE 105 mmol/L (98-107); CREATININE 0.58 mg/dL (0.60-1.30); GLOMERULAR FILTR. RATE CALC > 60 mL/min (>60); SODIUM SERUM 141 mmol/L (136-145); UREA NITROGEN, BLOOD 11 mg/dL (7-18)
[2017-01-14 11:58] LABS: ABG A-A DIFF O2 81.4 mmHg (10-20.0); ABG BASE EXCESS 6.4 mmol/L (-2.0-3.0); ABG HCO3 29.6 mmol/L (22.0-26.0); ABG OXYHEMOGLOBIN 94.2 % (94.0-100.0); ABG PCO2 45 mmHg (35-45); ABG PH 7.447 (7.35-7.450); TEMPERATURE, FAHRENHEIT, BG 98.6 FAHREN (96.0-98.6)
[2017-01-14 12:00] VITALS: BP 126/72
[2017-01-14 12:00] LABS: ALLEN TEST, BLOOD GAS Positive
[2017-01-14 16:00] VITALS: BP 147/85
[2017-01-14 20:00] VITALS: BP 175/103
[2017-01-14] MEDS: LORazepam 2 MG/ML VIAL IVP PRN (22:22)
[2017-01-14] MEDS: LEVOFLOXACIN 750 MG/D5% WATER 150 ML IV SCH (22:22)
[2017-01-15] VITALS (8 sets, daily range): BP systolic 114–158; BP diastolic 76–95
[2017-01-15] MEDS: IPRATROPIUM BROMIDE 0.5 MG/2.5 ML NEB SOLUTION NEB SCH ×4 (01:19→20:24)
[2017-01-15] MEDS: ALBUTEROL SULFATE 2.5 MG/0.5 ML NEB SOLUTION NEB SCH ×4 (01:19→20:24)
[2017-01-15] MEDS ORDERED: SODIUM CHLORIDE 0.9% 250 ML IV ONE (06:22)
[2017-01-15] MEDS: MULTIVITAMINS WITH MINERALS, THERAPEUTIC 15 ML UDCUP GT SCH (08:55)
[2017-01-15] MEDS: PANTOPRAZOLE SODIUM 40 MG/VIAL IVP SCH (08:56)
[2017-01-15] MEDS: ENOXAPARIN SODIUM 30 MG/0.3 ML PF SYRINGE SQ SCH (08:56)
[2017-01-16] MEDS: LEVOFLOXACIN 750 MG/D5% WATER 150 ML IV SCH ×2 (00:32→22:46)
[2017-01-16] MEDS: IPRATROPIUM BROMIDE 0.5 MG/2.5 ML NEB SOLUTION NEB SCH ×4 (03:02→21:21)
[2017-01-16] MEDS: ALBUTEROL SULFATE 2.5 MG/0.5 ML NEB SOLUTION NEB SCH ×4 (03:02→21:21)
[2017-01-16 04:53] VITALS: BP 126/64
[2017-01-16 07:27] VITALS: BP 130/69
[2017-01-16] MEDS: MULTIVITAMINS WITH MINERALS, THERAPEUTIC 15 ML UDCUP GT SCH (08:30)
[2017-01-16] MEDS: ENOXAPARIN SODIUM 30 MG/0.3 ML PF SYRINGE SQ SCH (08:30)
[2017-01-16] MEDS: PANTOPRAZOLE SODIUM 40 MG/VIAL IVP SCH (08:30)
[2017-01-16 12:48] VITALS: BP 117/65
[2017-01-16 16:03] VITALS: BP 136/81
[2017-01-16 20:28] VITALS: BP 146/91
[2017-01-16] MEDS ORDERED: SODIUM CHLORIDE 0.9% 250 ML IV ONE (22:43)
[2017-01-16 23:43] VITALS: BP 141/84
[2017-01-17] MEDS: ALBUTEROL SULFATE 2.5 MG/0.5 ML NEB SOLUTION NEB SCH ×3 (02:00→14:09)
[2017-01-17] MEDS: IPRATROPIUM BROMIDE 0.5 MG/2.5 ML NEB SOLUTION NEB SCH ×3 (02:00→14:09)
[2017-01-17 04:28] VITALS: BP 140/79
[2017-01-17 07:39] VITALS: BP 121/73
[2017-01-17] MEDS: MULTIVITAMINS WITH MINERALS, THERAPEUTIC 15 ML UDCUP GT SCH (08:27)
[2017-01-17] MEDS: ENOXAPARIN SODIUM 30 MG/0.3 ML PF SYRINGE SQ SCH (08:28)
[2017-01-17] MEDS: PANTOPRAZOLE SODIUM 40 MG/VIAL IVP SCH (08:28)
[2017-01-17 12:00] VITALS: BP 134/85
[2017-01-17 16:00] VITALS: BP 144/89
[2017-01-17] MEDS ORDERED: LEVO500 PO (16:45)
[2017-01-17] MEDS ORDERED: MULT-1203 PO (16:47)
== END 2017-01-17 18:30 | disposition home or self-care (01) | DRG 870 ==
LOC: EMS 14:50 → AHU 19:40 → 6N 19:40 → ICU 01-07 00:32 → 6N 01-15 17:35
PROVIDERS: ADMIT Internal Medicine; ATTEND Internal Medicine
PROC: 0BH17EZ Insertion of Endotracheal Airway into Trachea, Via Natural or Artificial Opening (ICD-10-PCS; principal; 2017-01-05)
PROC: 5A1955Z Respiratory Ventilation, Greater than 96 Consecutive Hours (ICD-10-PCS; 2017-01-05)
DX: A41.9 Sepsis, unspecified organism (principal); J96.01 Acute respiratory failure with hypoxia; E43 Unspecified severe protein-calorie malnutrition; J18.9 Pneumonia, unspecified organism; E87.1 Hypo-osmolality and hyponatremia; K92.2 Gastrointestinal hemorrhage, unspecified; J44.0 Chronic obstructive pulmonary disease with (acute) lower respiratory infection; E87.6 Hypokalemia; F31.9 Bipolar disorder, unspecified; D64.9 Anemia, unspecified; F17.210 Nicotine dependence, cigarettes, uncomplicated; I10 Essential (primary) hypertension; M10.9 Gout, unspecified; Z82.49 Family history of ischemic heart disease and other diseases of the circulatory system; Z86.73 Personal history of transient ischemic attack (TIA), and cerebral infarction without residual deficits; Z68.21 Body mass index [BMI] 21.0-21.9, adult; Z88.0 Allergy status to penicillin
CPT/HCPCS: 71250; 72192; 74150; 82805; 83605; 83735; 84100; 84132; 84443; 87040; 87070; 87081; 87086; 87205; 87804; 92610; 93005; 93306; 93970; 94002; 94003; 94640; 97110; 97116; 97161; 97530; 99285; 99406; C9113; J0330; J0456; J0696; J1650; J1956; J2060; J2270; J2704; J3490; J7030; J7040; J7050

== ENCOUNTER 2017-05-01 20:35 | Inpatient (IN) | payer MEDICARE, MEDICAID ==
[~2017-05-01] VITALS: Ht 152.4 cm; Wt 46.4 kg
[~2017-05-01 20:35] MED LIST changes: -BENZ0.5T6 PO; +BENZ1TAB10 PO; -ETOMIDATE 2 MG/ML 10 ML VIAL IVP ONE; +LEVO500 PO; +MULT-1203 PO; -RISP1 PO; +RISP2 PO; -SUCCINYLCHOLINE CHLORIDE 20 MG/ML 10 ML VIAL IVP ONE
[2017-05-01 21:23] LABS: EOSINOPHILS # (AUTO) 0.05 K/uL (0.00-0.70); EOSINOPHILS % (AUTO) 0.99 % (1.0-6.0); HEMATOCRIT 46.9 % (36-46); HEMOGLOBIN 15.9 g/dL (12.0-16.0); LYMPHOCYTES # (AUTO) 2.9 K/uL (1.0-4.8); LYMPHOCYTES % (AUTO) 57.1 % (22.0-44.0); MEAN CORPUSCULAR HEMOGLOBIN 33.8 pg (26.0-34.0); MEAN CORPUSCULAR HGB CONC 33.8 G/dL (31.0-37.0); MEAN CORPUSCULAR VOLUME 100 fL (80-100); MONOCYTES # (AUTO) 0.5 K/uL (0.1-1.0); MONOCYTES % (AUTO) 9.5 % (2.0-9.0); NEUTROPHILS # (AUTO) 1.6 K/uL (1.8-7.7); NEUTROPHILS % (AUTO) 30.5 % (40.0-70.0); PLATELET COUNT (AUTO) 254 K/uL (150-450); RED BLOOD CELL COUNT(AUTO) 4.69 MIL/uL (4.00-5.20); WHITE BLOOD COUNT (AUTO) 5.1 K/uL (4.5-11.0)
[2017-05-01 21:24] LABS: RBC MORPHOLOGY COMMENT ABNORMAL RBC MORPH
[2017-05-01 21:27] LABS: APPEARANCE,URINE CLEAR (CLEAR); GLUCOSE, URINE (UA) NEGATIVE (NEGATIVE); KETONES,URINE NEGATIVE (NEGATIVE); LEUKOCYTE ESTERASE ,URINE NEGATIVE (NEGATIVE); OCCULT BLOOD,URINE NEGATIVE (NEGATIVE); PH,URINE 5.5 (5.0-8.0); PROTEIN,URINE NEGATIVE (NEGATIVE)
[2017-05-01 21:46] LABS: B-TYPE NATRIURETIC PEPTIDE 31 pg/mL (0-100)
[2017-05-01 21:46] LABS: ADD UA MICROSCOPIC NO
[2017-05-01 21:58] LABS: ANION GAP 10 mmol/L (8-16); CALCIUM, TOTAL 8.7 mg/dL (8.8-10.5); CARBON DIOXIDE 29 mmol/L (22-29); CHLORIDE 100 mmol/L (98-107); CREATININE 0.74 mg/dL (0.60-1.30); GLOMERULAR FILTR. RATE CALC > 60 mL/min (>60); POTASSIUM 3.1 mmol/L (3.5-5.1); SODIUM SERUM 139 mmol/L (136-145); UREA NITROGEN, BLOOD 13 mg/dL (7-18)
[2017-05-01] MEDS ORDERED: IPRATROPIUM BROMIDE 0.5 MG/2.5 ML NEB SOLUTION NEB ONE (22:00)
[2017-05-01] MEDS ORDERED: ALBUTEROL SULFATE 5 MG/ML 20 ML NEB SOLN [BULK] NEB ONE (22:00)
[2017-05-01] MEDS ORDERED: MethylPREDNISolone SOD SUCC 125 MG/2 ML VIAL IVP ONE (22:00)
[2017-05-01 22:05] LABS: ALANINE AMINOTRANSFERASE 145 U/L (12-78); ALBUMIN 3.1 g/dL (3.4-5.0); ASPARTATE AMINOTRANSFERASE 238 U/L (15-37); BILIRUBIN,TOTAL 0.9 mg/dL (0.1-1.0); TOTAL PROTEIN, SERUM 8.4 g/dL (6.4-8.2)
[2017-05-01] MEDS ORDERED: POTASSIUM CHLORIDE 10% 40 MEQ/30 ML LIQUID UDCUP PO ONE (23:00)
[2017-05-01] MEDS ORDERED: ACETAMINOPHEN 325 MG TABLET PO PRN ×2 (23:00→23:30)
[2017-05-01] MEDS ORDERED: 0.9% SODIUM CHLORIDE 10 ML SYRINGE IVP PRN (23:00)
[2017-05-01] MEDS ORDERED: ALBUTEROL SULFATE 2.5 MG/0.5 ML NEB SOLUTION NEB SCH (23:00)
[2017-05-01] MEDS ORDERED: ONDANSETRON HCL 4 MG/2 ML VIAL IVP PRN ×2 (23:00→23:30)
[2017-05-01] MEDS ORDERED: IPRATROPIUM BROMIDE 0.5 MG/2.5 ML NEB SOLUTION NEB SCH (23:00)
[2017-05-01] MEDS ORDERED: MAGNESIUM SULFATE 4 GM/WATER 100 ML IV PRN (23:30)
[2017-05-01] MEDS ORDERED: MAGNESIUM HYDROXIDE SUSPENSION 30 ML UDCUP PO PRN (23:30)
[2017-05-01] MEDS ORDERED: POTASSIUM CHL 10 MEQ/WATER 50 ML IV PRN (23:30)
[2017-05-01] MEDS ORDERED: GuaiFENesin/D-METHORPHAN/PHENYLEPH 5 ML LIQUID ORAL.SYG PO PRN (23:30)
[2017-05-01] MEDS ORDERED: POTASSIUM CHLORIDE 20 MEQ ER TABLET PO PRN ×2 (23:30)
[2017-05-01] MEDS ORDERED: OxyCODONE HCL/ACETAMINOPHEN 5-325 MG TABLET PO PRN (23:30)
[2017-05-01] MEDS ORDERED: IPRATROPIUM BROMIDE 0.5 MG/2.5 ML NEB SOLUTION NEB PRN (23:30)
[2017-05-01] MEDS: BENZTROPINE MESYLATE 1 MG TABLET PO SCH (23:30)
[2017-05-01] MEDS ORDERED: BISACODYL 10 MG RECTAL RECTAL SUPPOSITORY PR PRN (23:30)
[2017-05-01] MEDS ORDERED: CloNIDine HCL 0.1 MG TABLET PO PRN (23:30)
[2017-05-01] MEDS ORDERED: ALBUTEROL SULFATE 2.5 MG/0.5 ML NEB SOLUTION NEB PRN (23:30)
[2017-05-01] MEDS ORDERED: MAGNESIUM SULFATE 2 GM in DEXTROSE 5%-WATER 50 ML IV PRN (23:30)
[2017-05-01] MEDS ORDERED: LORazepam 2 MG/ML VIAL IVP PRN (23:30)
[2017-05-01] MEDS ORDERED: MAGNESIUM OXIDE 400 MG TABLET PO PRN (23:30)
[2017-05-01] MEDS: RisperiDONE 2 MG TABLET PO SCH (23:45)
[2017-05-01 23:48] VITALS: BP 127/78
[2017-05-02] MEDS: ZOLPIDEM TARTRATE 5 MG TABLET PO PRN ×2 (00:38→20:40)
[2017-05-02 04:40] VITALS: BP 152/95
[2017-05-02 06:05] LABS: BASOPHILS # (AUTO) 0.01 K/uL (0.00-0.20); BASOPHILS % (AUTO) 0.4 % (0.0-2.0); EOSINOPHILS % (AUTO) 0.02 % (1.0-6.0); HEMATOCRIT 45.9 % (36-46); HEMOGLOBIN 15.4 g/dL (12.0-16.0); LYMPHOCYTES # (AUTO) 0.6 K/uL (1.0-4.8); MEAN CORPUSCULAR HEMOGLOBIN 34.1 pg (26.0-34.0); MEAN CORPUSCULAR HGB CONC 33.7 G/dL (31.0-37.0); MEAN CORPUSCULAR VOLUME 101 fL (80-100); MONOCYTES % (AUTO) 0.4 % (2.0-9.0); NEUTROPHILS # (AUTO) 1.5 K/uL (1.8-7.7); NEUTROPHILS % (AUTO) 72.1 % (40.0-70.0); PLATELET COUNT (AUTO) 242 K/uL (150-450); RED BLOOD CELL COUNT(AUTO) 4.54 MIL/uL (4.00-5.20); RED CELL DISTRIBUTION WIDTH 14.9 % (11.5-14.5); WHITE BLOOD COUNT (AUTO) 2.1 K/uL (4.5-11.0)
[2017-05-02 06:21] LABS: ALANINE AMINOTRANSFERASE 154 U/L (12-78); ANION GAP 15 mmol/L (8-16); ASPARTATE AMINOTRANSFERASE 202 U/L (15-37); BILIRUBIN,TOTAL 0.6 mg/dL (0.1-1.0); CALCIUM, TOTAL 8.6 mg/dL (8.8-10.5); CARBON DIOXIDE 23 mmol/L (22-29); CHLORIDE 102 mmol/L (98-107); CREATININE 0.83 mg/dL (0.60-1.30); GLOMERULAR FILTR. RATE CALC > 60 mL/min (>60); POTASSIUM 3.7 mmol/L (3.5-5.1); SODIUM SERUM 140 mmol/L (136-145); TOTAL PROTEIN, SERUM 8.2 g/dL (6.4-8.2); UREA NITROGEN, BLOOD 17 mg/dL (7-18)
[2017-05-02 07:37] VITALS: BP 156/98
[2017-05-02 09:18] LABS: RBC MORPHOLOGY COMMENT ABNORMAL RBC MORPH
[2017-05-02] MEDS: FLUoxetine HCL 20 MG CAPSULE PO SCH (10:35)
[2017-05-02] MEDS: TRIAMTERENE/HCTZ 37.5-25 MG CAPSULE PO SCH (10:35)
[2017-05-02] MEDS: ALLOPURINOL 300 MG TABLET PO SCH ×2 (10:35→20:40)
[2017-05-02] MEDS: PANTOPRAZOLE SODIUM 40 MG DR TABLET PO SCH (10:35)
[2017-05-02] MEDS: MethylPREDNISolone SOD SUCC 125 MG/2 ML VIAL IVP SCH ×3 (10:35→20:39)
[2017-05-02] MEDS: BENZTROPINE MESYLATE 1 MG TABLET PO SCH ×2 (10:35→20:40)
[2017-05-02] MEDS: HEPARIN SODIUM,PORCINE 5,000 UNITS/ML VIAL SQ SCH ×2 (10:35→20:39)
[2017-05-02 11:33] VITALS: BP 130/85
[2017-05-02 15:39] VITALS: BP 153/97
[2017-05-02 20:38] VITALS: BP 150/89
[2017-05-02] MEDS: RisperiDONE 2 MG TABLET PO SCH (20:40)
[2017-05-03 00:24] VITALS: BP 149/85
[2017-05-03 05:55] VITALS: BP 143/92
[2017-05-03 07:38] VITALS: BP 148/95
[2017-05-03] MEDS: ALLOPURINOL 300 MG TABLET PO SCH (08:18)
[2017-05-03] MEDS: FLUoxetine HCL 20 MG CAPSULE PO SCH (08:18)
[2017-05-03] MEDS: BENZTROPINE MESYLATE 1 MG TABLET PO SCH (08:18)
[2017-05-03] MEDS: PANTOPRAZOLE SODIUM 40 MG DR TABLET PO SCH (08:18)
[2017-05-03] MEDS: TRIAMTERENE/HCTZ 37.5-25 MG CAPSULE PO SCH (08:18)
[2017-05-03] MEDS: HEPARIN SODIUM,PORCINE 5,000 UNITS/ML VIAL SQ SCH (08:19)
[2017-05-03] MEDS: MethylPREDNISolone SOD SUCC 125 MG/2 ML VIAL IVP SCH (08:19)
[2017-05-03 11:21] VITALS: BP 140/93
[2017-05-03 15:28] VITALS: BP 130/84
[2017-05-03] MEDS ORDERED: PredniSONE 20 MG TABLET PO ONE (15:30)
[2017-05-03] MEDS ORDERED: PRED5 PO (15:31)
== END 2017-05-03 16:00 | disposition home or self-care (01) | DRG 191 ==
LOC: EMS 20:37 → 6N 22:53
PROVIDERS: ADMIT Internal Medicine; ATTEND Internal Medicine
DX: J44.1 Chronic obstructive pulmonary disease with (acute) exacerbation (principal); E44.0 Moderate protein-calorie malnutrition; I69.351 Hemiplegia and hemiparesis following cerebral infarction affecting right dominant side; E11.65 Type 2 diabetes mellitus with hyperglycemia; K70.30 Alcoholic cirrhosis of liver without ascites; I10 Essential (primary) hypertension; E83.51 Hypocalcemia; F10.129 Alcohol abuse with intoxication, unspecified; E87.6 Hypokalemia; F17.210 Nicotine dependence, cigarettes, uncomplicated; M10.9 Gout, unspecified; F31.9 Bipolar disorder, unspecified; R73.9 Hyperglycemia, unspecified; Z98.891 History of uterine scar from previous surgery; Z71.6 Tobacco abuse counseling; Z88.0 Allergy status to penicillin; Z79.899 Other long term (current) drug therapy; Z68.20 Body mass index [BMI] 20.0-20.9, adult; Z79.890 Hormone replacement therapy
CPT/HCPCS: 93005; 94640; 96374; 99285; G0480; J1644; J2930

== ENCOUNTER 2017-08-26 23:36 | Inpatient (IN) | payer MEDICARE, MEDICAID, OTHER ==
[~2017-08-26] VITALS: Ht 152.4 cm; Wt 48.3 kg
[~2017-08-26 23:36] MED LIST changes: +PRED5 PO; -RISP2 PO
[2017-08-26] MEDS ORDERED: 0.9% SODIUM CHLORIDE 10 ML SYRINGE IVP PRN (23:45)
[2017-08-26] MEDS ORDERED: WATER FOR INJECTION STERILE IV ONE ×3 (23:45)
[2017-08-26] MEDS ORDERED: ALTEPLASE IV ONE ×3 (23:45)
[2017-08-26] MEDS ORDERED: PROZ10 PO (23:49)
[2017-08-26] MEDS ORDERED: BENZ0.5T6 PO (23:49)
[2017-08-26] MEDS ORDERED: CLON-570 PO (23:49)
[2017-08-26] MEDS ORDERED: RISP.5 PO (23:49)
[2017-08-26 23:53] LABS: BASOPHILS # (AUTO) 0.07 K/uL (0.00-0.20); BASOPHILS % (AUTO) 1.3 % (0.0-2.0); EOSINOPHILS # (AUTO) 0.07 K/uL (0.00-0.70); EOSINOPHILS % (AUTO) 1.37 % (1.0-6.0); HEMATOCRIT 43.8 % (36-46); HEMOGLOBIN 14.7 g/dL (12.0-16.0); LYMPHOCYTES # (AUTO) 2.8 K/uL (1.0-4.8); LYMPHOCYTES % (AUTO) 53.4 % (22.0-44.0); MEAN CORPUSCULAR HEMOGLOBIN 33.1 pg (26.0-34.0); MEAN CORPUSCULAR HGB CONC 33.5 G/dL (31.0-37.0); MEAN CORPUSCULAR VOLUME 99 fL (80-100); MONOCYTES # (AUTO) 0.6 K/uL (0.1-1.0); MONOCYTES % (AUTO) 10.9 % (2.0-9.0); NEUTROPHILS # (AUTO) 1.7 K/uL (1.8-7.7); NEUTROPHILS % (AUTO) 33.1 % (40.0-70.0); PLATELET COUNT (AUTO) 174 K/uL (150-450); RED BLOOD CELL COUNT(AUTO) 4.43 MIL/uL (4.00-5.20); RED CELL DISTRIBUTION WIDTH 14.9 % (11.5-14.5); WHITE BLOOD COUNT (AUTO) 5.2 K/uL (4.5-11.0)
[2017-08-27] VITALS (7 sets, daily range): BP systolic 146–187; BP diastolic 89–104
[2017-08-27 00:08] LABS: ANION GAP 7 mmol/L (8-16); CALCIUM, TOTAL 8.9 mg/dL (8.8-10.5); CARBON DIOXIDE 32 mmol/L (22-29); CHLORIDE 104 mmol/L (98-107); CREATININE 0.65 mg/dL (0.60-1.30); GLOMERULAR FILTR. RATE CALC > 60 mL/min (>60); INR 1.2 (0.9-1.1); POTASSIUM 3.6 mmol/L (3.5-5.1); SODIUM SERUM 143 mmol/L (136-145); UREA NITROGEN, BLOOD 9 mg/dL (7-18)
[2017-08-27 00:13] LABS: B-TYPE NATRIURETIC PEPTIDE 59 pg/mL (0-100)
[2017-08-27 00:20] LABS: ALANINE AMINOTRANSFERASE 104 U/L (12-78); ASPARTATE AMINOTRANSFERASE 122 U/L (15-37); BILIRUBIN,TOTAL 0.3 mg/dL (0.1-1.0); CREATINE KINASE, TOTAL 58 U/L (26-192); TOTAL PROTEIN, SERUM 7.8 g/dL (6.4-8.2)
[2017-08-27] MEDS ORDERED: ONDANSETRON HCL 4 MG/2 ML VIAL IVP PRN (03:00)
[2017-08-27] MEDS ORDERED: 0.9% SODIUM CHLORIDE 10 ML SYRINGE IVP PRN (03:00)
[2017-08-27] MEDS ORDERED: ACETAMINOPHEN 325 MG TABLET PO PRN ×2 (03:00→09:45)
[2017-08-27] MEDS ORDERED: INFLUENZA VIRUS VACCINE QVS 2017-18 (3YR+)/PF 60 MCG/0.5 ML SYRINGE IM ONE (05:15)
[2017-08-27] MEDS ORDERED: PNEUMOCOCCAL VACCINE POLYVALENT 0.5 ML VIAL [PPSV23] IM ONE (05:15)
[2017-08-27] MEDS ORDERED: ALTEPLASE IV ONE ×2 (07:00)
[2017-08-27] MEDS ORDERED: WATER FOR INJECTION STERILE IV ONE ×2 (07:00)
[2017-08-27] MEDS ORDERED: PANTOPRAZOLE SODIUM 40 MG DR TABLET PO SCH (09:00)
[2017-08-27] MEDS ORDERED: MAGNESIUM HYDROXIDE SUSPENSION 30 ML UDCUP PO PRN (09:45)
[2017-08-27] MEDS ORDERED: MAGNESIUM SULFATE 2 GM in DEXTROSE 5%-WATER 50 ML IV PRN (10:00)
[2017-08-27] MEDS ORDERED: MAGNESIUM SULFATE 4 GM/WATER 100 ML IV PRN (10:00)
[2017-08-27] MEDS ORDERED: SODIUM CHLORIDE 0.9% 1,000 ML IV ONE (10:00)
[2017-08-27] MEDS ORDERED: AmLODIPine BESYLATE 5 MG TABLET PO ONE ×2 (10:15→21:30)
[2017-08-27] MEDS: ASPIRIN 81 MG CHEWABLE TABLET PO SCH (10:19)
[2017-08-27] MEDS: PANTOPRAZOLE SODIUM 40 MG DR TABLET PO SCH (10:19)
[2017-08-27 10:36] LABS: ALBUMIN 3.3 g/dL (3.4-5.0); MAGNESIUM 1.7 mg/dL (1.80-2.40)
[2017-08-27] MEDS: MULTIVITAMINS WITH MINERALS, THERAPEUTIC TABLET PO SCH (10:39)
[2017-08-27] MEDS: MAGNESIUM OXIDE 400 MG TABLET PO PRN (16:04)
[2017-08-27] MEDS: DOCUSATE SODIUM 100 MG CAPSULE PO SCH (20:37)
[2017-08-27] MEDS ORDERED: ZOLPIDEM TARTRATE 5 MG TABLET PO PRN (21:30)
[2017-08-28 00:35] VITALS: BP 157/91
[2017-08-28] MEDS: MAGNESIUM OXIDE 400 MG TABLET PO PRN (01:36)
[2017-08-28 05:07] VITALS: BP 155/96
[2017-08-28 07:24] VITALS: BP 150/87
[2017-08-28] MEDS: MULTIVITAMINS WITH MINERALS, THERAPEUTIC TABLET PO SCH (08:03)
[2017-08-28] MEDS: ASPIRIN 81 MG CHEWABLE TABLET PO SCH (08:03)
[2017-08-28] MEDS: DOCUSATE SODIUM 100 MG CAPSULE PO SCH (08:03)
[2017-08-28] MEDS: PANTOPRAZOLE SODIUM 40 MG DR TABLET PO SCH (08:04)
[2017-08-28] MEDS ORDERED: AmLODIPine BESYLATE 5 MG TABLET PO SCH (09:00)
[2017-08-28] MEDS ORDERED: ATORVASTATIN CALCIUM 10 MG TABLET PO SCH (09:00)
[2017-08-28] MEDS ORDERED: ATOR20TA86 PO (10:07)
[2017-08-28 11:15] VITALS: BP 155/87
== END 2017-08-28 12:45 | disposition home or self-care (01) | DRG 896 ==
LOC: EMS 23:38 → 5S 08-27 03:24
PROVIDERS: ADMIT Internal Medicine; ATTEND Internal Medicine
PROC: 3E0234Z Introduction of Serum, Toxoid and Vaccine into Muscle, Percutaneous Approach (ICD-10-PCS; principal; 2017-08-28)
PROC: 3E0234Z Introduction of Serum, Toxoid and Vaccine into Muscle, Percutaneous Approach (ICD-10-PCS; 2017-08-28)
DX: F10.129 Alcohol abuse with intoxication, unspecified (principal); G93.41 Metabolic encephalopathy; J44.9 Chronic obstructive pulmonary disease, unspecified; K70.30 Alcoholic cirrhosis of liver without ascites; F31.9 Bipolar disorder, unspecified; M10.9 Gout, unspecified; F99 Mental disorder, not otherwise specified; I10 Essential (primary) hypertension; Z86.73 Personal history of transient ischemic attack (TIA), and cerebral infarction without residual deficits; F17.210 Nicotine dependence, cigarettes, uncomplicated; Z98.891 History of uterine scar from previous surgery; Z79.899 Other long term (current) drug therapy; Z88.8 Allergy status to other drugs, medicaments and biological substances; Z71.6 Tobacco abuse counseling; Z71.41 Alcohol abuse counseling and surveillance of alcoholic; Z82.49 Family history of ischemic heart disease and other diseases of the circulatory system; Z23 Encounter for immunization
CPT/HCPCS: 80307; 83735; 90471; 93005; 99291; G0480; J7030